=== PATIENT | female | born 1970 | race Caucasian/White ===

== ENCOUNTER → 2021-03-02 04:21 | Outpatient (CLI) | payer BC, SELFPAY ==
[2021-03-02 19:26] LABS: SARS-CoV-2 RNA PCR Negative
== END ==
PROVIDERS: PCP Physician Assistant; Visit Provider Physician Assistant
DX: Z20.822 Contact with and (suspected) exposure to COVID-19 (principal)
CPT/HCPCS: C9803; U0003; U0005

== ENCOUNTER → 2021-11-07 13:05 | Outpatient (CLI) | payer BC, SELFPAY ==
--- NOTE | ~2021-11-07 | XR_ITS ---
XR knee RT min 4V 11/07/2021 13:39 Indication: Right knee pain Procedure: 4 views right knee Comparison: No prior studies Findings: Mild osteoarthritis of the patellofemoral compartment. No fracture, subluxation or dislocat ion. No significant joint effusion. Impression: 1: Mild patellofemoral compartment osteoarthritis of the right knee. Reviewed, dictated and finalized at location B. Impression: 1: Mild patellofemoral compartment osteoarthritis of the right knee.
== END ==
PROVIDERS: PCP Physician Assistant; Visit Provider Physician Assistant
DX: M25.561 Pain in right knee (principal); M17.11 Unilateral primary osteoarthritis, right knee
CPT/HCPCS: 73564

== ENCOUNTER 2021-12-17 08:29 | Emergency (ER) | payer BC, SELFPAY ==
[2021-12-17 08:44] VITALS: BP 132/86; PULSE 80; RESP 18; TEMP 36.4; O2SAT 100
--- NOTE | 2021-12-17 08:53 | ED.EAR ---
HPI - Ear Problem General Chief complaint: Ear Stated complaint: Right Ear Irritation Time Seen by Provider: 12/17/21 09:00 Source: patient and RN notes reviewed Mode of arrival: ambulatory Limitations: no limitations History of Present Illness HPI Narrative: 51-year-old female presents concern for right ear pain and irritation for several days. She reports history of itchy ears, she was scratching the ear and she noticed some fluid came out and then it became painful. She denies any fever. Reports mild stuffy and runny nose. She denies hearing changes. MD Complaint: ear pain Related Data Home Medications Medication Instructions Recorded Confirmed dapagliflozin 5 mg tablet (Farxiga) 5 mg PO DAILY 12/17/21 12/17/21 metformin 1,000 mg tablet 1,000 mg PO BID 12/17/21 12/17/21 telmisartan 80 1 tablet PO DAILY 12/17/21 12/17/21 mg-hydrochlorothiazide 12.5 mg tablet Allergies Allergy/AdvReac Type Severity Reaction Status Date / Time lisinopril AdvReac Intermediate Cough Verified 12/17/21 08:58 Review of Systems Review of Systems: CONSTITUTIONAL: Denies malaise, chills, sweats, or fever. EYES: Denies visual changes, redness, or discharge. ENT: Reports mild rhinorrhea, congestion. Denies sinus pain, and sore throat. Reports right ear pain and irritation CARDIOVASCULAR: Denies chest pain, palpitations, or edema. RESPIRATORY: Denies cough. Denies dyspnea. GASTROINTESTINAL: Denies abdominal pain, nausea, vomiting, diarrhea SKIN: Denies rash or itching. MUSCULOSKELETAL: Denies myalgia. NEUROLOGIC: Denies headache. All systems reviewed & are unremarkable except as noted in HPI and below PMFSH Family History Family History (Updated 10/20/15 @ 23:19 by DOCTOR UNKNOWN) Mother Hypertension Family history of diabetes mellitus in first degree relative Father Family history of chronic obstructive pulmonary disease Family history of diabetes mellitus in first degree relative Family history of emphysema Other Diabetes mellitus Social History Social History Smoking status: Never smoker Alcohol intake: current Comments At time of signature, agree with nursing past medical, surgical, social and family history. There is no relevant family history pertinent to the presenting complaint Exam Narrative: GENERAL: Well-appearing, well-nourished, and in no acute distress. HEAD: Normocephalic EYES: PERRLA, conjunctivae clear ENT: Nares clear, turbinates edematous, clear discharge. Mucous membranes moist. TM pearly chambers with dull light reflex bilaterally; right tragal tenderness with EAC erythema, edema, drainage. Oropharynx not erythematous without lesions. Tonsils not enlarged and without exudate, no drooling, no hoarseness, no trismus, uvula midline. NECK: Supple. No lymphadenopathy CHEST: Clear to auscultation, breath sounds equal. No wheezing, rhonchi, rales, or stridor. No respiratory distress, speaks in full sentences. HEART: Regular rate and rhythm. No murmur heard. SKIN: Warm, dry, no rash. NEURO: Alert and oriented x3. PSYCH: Normal mood and affect Course Course Emergency Course: Patient is aware of diagnosis, understands and agrees to treatment plan. Anticipatory guidance given. Patient agrees to follow-up as directed and is aware of reasons to seek care at the emergency department. Portions of this record may have been created with voice recognition software Level of Care: Express Care Visit Vital Signs Vital signs: Vital Signs Temperature 97.6 F 12/17/21 08:44 Pulse Rate 80 12/17/21 08:44 Respiratory Rate 18 12/17/21 08:44 Blood Pressure 132/86 12/17/21 08:44 Pulse Oximetry 100 12/17/21 08:44 Oxygen Delivery Room Air 12/17/21 08:44 Temperature 97.6 F 12/17/21 08:44 Pulse Rate 80 12/17/21 08:44 Respiratory Rate 18 12/17/21 08:44 Blood Pressure 132/86 12/17/21 08:44 Pulse Oximetry 100 12/17/21 08:44 Oxygen Delivery Room Air 12/17/21 08:44 Re
== END 2021-12-17 09:11 | disposition home or self-care (01) ==
PROVIDERS: Emergency Provider Nurse Practitioner; PCP Physician Assistant
DX: H60.91 Unspecified otitis externa, right ear (principal)
CPT/HCPCS: 99213; G0463

== ENCOUNTER 2022-03-20 00:40 | Day surgery (SDC) | payer BC, SELFPAY ==
[2022-03-06 14:22] VITALS: BMI 44.5
--- NOTE | 2022-03-15 13:06 | PM.HPGS ---
History of Present Illness History of Present Illness Consent: Risks, benefits, and alternatives have been discussed and questions answered. Patient agrees to proceed with procedure. Chief complaint: neoplasm screening Narrative: Kathy Rivers is a 52 year old female Referred for colon cancer screening. Review of Systems Review of Systems: All systems reviewed & are unremarkable except as noted in HPI and below PMFSH Family History Family History Mother Hypertension Family history of diabetes mellitus in first degree relative Father Family history of chronic obstructive pulmonary disease Family history of diabetes mellitus in first degree relative Family history of emphysema Other Diabetes mellitus Social History Social History Smoking status: Never smoker Alcohol intake: never Substance use: never Substance use type: does not use Living arrangements: with family Spiritual care concerns: No Meds Home Medications and Allergies Home Medications Medication Instructions Recorded Confirmed Type dapagliflozin 5 mg tablet (Farxiga) 5 mg PO DAILY 12/17/21 03/20/22 History metformin 1,000 mg tablet 1,000 mg PO BID 12/17/21 03/20/22 History telmisartan 80 1 tablet PO DAILY 12/17/21 03/20/22 History mg-hydrochlorothiazide 12.5 mg tablet semaglutide 0.25 mg or 0.5 mg (2 0.5 mg subcut WEEKLY 03/06/22 03/20/22 History mg/1.5 mL) subcutaneous pen injector (Ozempic) Allergies Allergy/AdvReac Type Severity Reaction Status Date / Time lisinopril AdvReac Intermediate Cough Verified 03/20/22 08:44 Exam Resp: Auscultation: clear to auscultation bilaterally Cardio: Rate: regular rate Rhythm: regular rhythm GI: GI Palp: Yes Soft to palpation and No Tenderness to palpation present (GI) Assessment and Plan Assessment and plan (1) Colon cancer screening: Code(s): Z12.11 - Encounter for screening for malignant neoplasm of colon Status: Acute Assessment and Plan: Colonoscopy with possible biopsy or polypectomy or cautery or injection of substances.
[2022-03-20 08:44] LABS: Glucose Point of Care 99 mg/dl (65-105)
[2022-03-20 08:45] VITALS: BP 130/93; PULSE 91; RESP 20; TEMP 36.1; O2SAT 98
--- NOTE | 2022-03-20 08:49 | WPDANESEPPF ---
Anes - Initial Pre Proc Eval Procedure: Operation Date: 03/20/22 09:45 Proposed Procedures p Screening Colonoscopy - Zenon Christensen MD Date/Time: 03/20/22 08:49 Surgeon: Zenon Christensen MD Pre Op Diagnosis: neoplasm screening Patient Data Age: 52 Gender: F Height: 1.6 m Weight: 111.9 kg Last Vital Signs Temp 97.0 F L 03/20/22 08:45 Pulse 91 03/20/22 08:45 Resp 20 03/20/22 08:45 BP 130/93 H 03/20/22 08:45 Pulse Ox 98 03/20/22 08:45 O2 Del Method Room Air 03/20/22 08:45 Allergies Allergy/AdvReac Type Severity Reaction Status Date / Time lisinopril AdvReac Intermediate Cough Verified 03/20/22 08:44 Home Medications Medication Instructions Recorded Confirmed Type dapagliflozin 5 mg tablet (Farxiga) 5 mg PO DAILY 12/17/21 03/20/22 History metformin 1,000 mg tablet 1,000 mg PO BID 12/17/21 03/20/22 History telmisartan 80 1 tablet PO DAILY 12/17/21 03/20/22 History mg-hydrochlorothiazide 12.5 mg tablet semaglutide 0.25 mg or 0.5 mg (2 0.5 mg subcut WEEKLY 03/06/22 03/20/22 History mg/1.5 mL) subcutaneous pen injector (Ozempic) Laboratory Tests 03/20/22 08:42 POC Capillary Glucose 99 mg/dl mg/dl (65-105) Patient hx anesthesia problems: none Family hx anesthesia problems: none Results Review: All pre-operative results and documents have been reviewed as part of the pre-operative evaluation. [facility] Family History Family History (Updated 10/20/15 @ 23:19 by DOCTOR UNKNOWN) Mother Hypertension Family history of diabetes mellitus in first degree relative Father Family history of chronic obstructive pulmonary disease Family history of diabetes mellitus in first degree relative Family history of emphysema Other Diabetes mellitus Social History Social History Smoking status: Never smoker Alcohol intake: never Substance use: never Substance use type: does not use Living arrangements: with family Spiritual care concerns: No Anes - Eval Final PreProcedure Day of Procedure 03/20/22 08:49 Patient weight: morbidly obese Heart: regular rate and rhythm Lungs: clear to auscultation Airway: Mallampati scale class II Neurological: alert and oriented Last oral intake: >/= 8 hours ASA classification: III Emergent: no Anesthetic plan: proceed Anesthesia type and monitoring: general GIVS and standard monitoring Results Review: All pre-operative results and documents have been reviewed as part of the pre-operative evaluation. Informed Consent: The patient's anesthetic plan and its attendant risks and benefits were discussed with the patient/family/POA. Questions were solicited and answers provided to the satisfaction of the patient/family/POA.
[2022-03-20] MEDS: LACTATED RINGERS 1,000 ML 150 ML IV CONT (09:09)
[2022-03-20 09:31] VITALS: BP 99/57; PULSE 74; RESP 20; O2SAT 97
[2022-03-20 09:41] VITALS: BP 100/56; PULSE 76; RESP 20; O2SAT 98
[2022-03-20 09:49] VITALS: BP 103/63; PULSE 73; RESP 20; O2SAT 97
== END 2022-03-20 10:05 | disposition home or self-care (01) ==
PROVIDERS: PCP Physician Assistant; Visit Provider Internal Medicine Gastroenterology
PROC: 0DJD8ZZ Inspection of Lower Intestinal Tract, Via Natural or Artificial Opening Endoscopic (ICD-10-PCS; CPT 45378; principal; 2022-03-20 09:45)
DX: Z12.11 Encounter for screening for malignant neoplasm of colon (principal); K57.30 Diverticulosis of large intestine without perforation or abscess without bleeding; K63.89 Other specified diseases of intestine; Z79.84 Long term (current) use of oral hypoglycemic drugs; Z79.899 Other long term (current) drug therapy; E66.01 Morbid (severe) obesity due to excess calories; Z68.41 Body mass index [BMI] 40.0-44.9, adult
CPT/HCPCS: 45380; 82948; 88305; J2704; J7120

== ENCOUNTER 2022-06-11 12:38 | Outpatient (CLI) | payer BC, SELFPAY ==
--- NOTE | ~2022-06-11 | CT_ITS ---
EXAMINATION: CT sinus wo con DATE: 06/11/2022 12:52 INDICATION: Nasal sinus obstruction TECHNIQUE: Computed tomography (CT) of the paranasal sinuses was performed without contrast. Iterativ e reconstruction technique was employed. Exam dose: 280.01 mGy-cm total exam DLP. COMPARISON: None FINDINGS: There is prominent soft tissue mass density engulfing the left middle nasal turbinate and p artially engulfing the left inferior nasal turbinate, including the left middle meatus. There is mild mucoperiosteal thickening of the maxillary sinuses, left greater than right. There is m inimal soft tissue thickening of the left maxillary ostium and infundibulum The right maxillary sinus and infundibula are patent. Normal development and aeration of the ethmoid air cells, frontal and sphenoid sinuses. The mastoid air cells are normally developed and aerated. IMPRESSION: Prominent confluent soft tissue thickening engulfing the left middle nasal turbinate and partially engulfing the left inferior nasal turbinate, opacifying the left middle meatus Mild mucoperiosteal thickening of the maxillary sinuses, left greater than right Reviewed, dictated and finalized at Location A. Reviewed, dictated and finalized at location B. IMPRESSION: Prominent confluent soft tissue thickening engulfing the left midd le nasal turbinate and partially engulfing the left inferior nasal turbinate, o pacifying the left middle meatus Mild mucoperiosteal thickening of the maxillary sinuses, left greater than righ t
== END 2022-06-11 12:39 ==
LOC: MICIMG 12:39
PROVIDERS: PCP Physician Assistant; Visit Provider Physician Assistant
DX: J34.89 Other specified disorders of nose and nasal sinuses (principal)
CPT/HCPCS: 70486

== ENCOUNTER 2022-08-07 08:43 | Emergency (ER) | payer BC, SELFPAY ==
--- NOTE | 2022-08-07 08:45 | ED.EAR ---
HPI - Ear Problem General Chief complaint: Ear Stated complaint: Ear Irritation Time Seen by Provider: 08/07/22 08:45 Source: patient Mode of arrival: ambulatory Limitations: no limitations History of Present Illness HPI Narrative: Kathy is a 52-year-old female patient presenting to the clinic today with complaints of left ear pain/irritation since last night. She reports that a beetle bug got into her left ear canal last night. She irrigated the bug out of her ear however, she is now having some pain in her left ear today. Denies any otorrhea or blood. Related Data Home Medications Medication Instructions Recorded Confirmed metformin 1,000 mg tablet 1,000 mg PO BID 12/17/21 08/07/22 semaglutide 0.25 mg or 0.5 mg (2 0.5 mg subcut WEEKLY 03/06/22 08/07/22 mg/1.5 mL) subcutaneous pen injector (Ozempic) Allergies Allergy/AdvReac Type Severity Reaction Status Date / Time lisinopril AdvReac Intermediate Cough Verified 08/07/22 08:46 Review of Systems Review of Systems: Pertinent positives per HPI. Patient denies any fever, chills, rash, headache, visual changes, dizziness, cough, runny nose, sore throat, shortness of breath, chest pain, palpitations, nausea, vomiting, diarrhea, constipation, abdominal pain, or any urinary issues. PMFSH Family History Family History Mother Hypertension Family history of diabetes mellitus in first degree relative Father Family history of chronic obstructive pulmonary disease Family history of diabetes mellitus in first degree relative Family history of emphysema Other Diabetes mellitus Social History Social History Smoking status: Never smoker Alcohol intake: never Substance use: never Substance use type: does not use Living arrangements: with family Spiritual care concerns: No Comments At the time of my signature, I reviewed and agree with the nursing past medical, surgical, social, and family history. There is no relevant family history pertinent to the patient complaint. Exam Narrative: General: Well-developed, well nourished, in no apparent distress Head: Normocephalic, atraumatic Eyes: Pupils equally round and reactive to light bilaterally, EOM intact, sclera and conjunctive clear, no discharge, lids normal Ears: Right tMs intact and clear, left TM intact, mildly red, without bulging, left ear canal mildly red, right ear canal clear, no drainage, grossly hearing normal. Nose: Nares patent, no discharge, no inflammation, no sinus tenderness. Mouth: Oropharynx without lesions or masses, good dentition, MMM. Neck: Supple, trachea midline, no enlargement of anterior or posterior cervical nodes, no thyroid masses or goiter palpable. Cardio: Regular rate and rhythm, s1 and s2 normal, no murmur appreciated. Resp: Clear to auscultation bilaterally anteriorly and posteriorly, no rhonchi, rales, wheezing or rubs Course Course Emergency Course: Portions of this record may have been created with voice recognition software. Level of Care: Express Care Visit Vital Signs Vital signs: Vital signs reviewed Medical Decision Making MDM Narrative Medical decision making narrative: At the time of visit patient is resting comfortably on the exam table. Patient does have some excoriation/irritation to the left ear canal and to the anterior TM. Will send in prescription for some Cortisporin ear drops to help with irritation/pain and cover any infection. Supportive measures were discussed with the patient she voiced understanding of the discharge instructions and agrees to treatment plan. Differential Diagnosis Differential Diagnosis: Otitis media, otitis externa, eustachian tube dysfunction, cerumen impaction, upper respiratory infection, Discharge Plan Discharge Clinical Impression: Irritation of external ear canal Qual
[2022-08-07 08:51] VITALS: BP 131/86; PULSE 84; RESP 20; TEMP 36.6; O2SAT 99
== END 2022-08-07 09:05 | disposition home or self-care (01) ==
PROVIDERS: Emergency Provider Nurse Practitioner Family; PCP Physician Assistant
DX: H61.892 Other specified disorders of left external ear (principal); I10 Essential (primary) hypertension; E11.9 Type 2 diabetes mellitus without complications
CPT/HCPCS: 99213; G0463

== ENCOUNTER 2023-01-24 08:04 | Emergency (ER) | payer BC, SELFPAY ==
[2023-01-24 08:15] VITALS: BP 144/80; PULSE 78; RESP 16; TEMP 36.7; O2SAT 99
[2023-01-24 08:19] VITALS: BP 144/80; PULSE 78; RESP 16; TEMP 36.7; O2SAT 99
--- NOTE | 2023-01-24 08:36 | ED.SKABFB ---
HPI - Skin/Abscess/Foreign Bdy General Chief complaint: Skin/Abscess/Foreign Body Stated complaint: itching,rash Time Seen by Provider: 01/24/23 08:27 Source: patient and RN notes reviewed Mode of arrival: ambulatory Limitations: no limitations History of Present Illness HPI narrative: Patient presents today complaining of a severely pruritic rash to her body, primarily to her arms, hands, waist band, neck and chest. Rash was noted this morning when she arrived at work. Patient believes this is likely an allergic reaction to medication she was started on 2 days ago by her primary for cough and congestion symptoms. She has been sick for the last 10-14 days and started on Augmentin and guaifenesin/codeine cough medicine. States she has had Augmentin several times in the past, last was a few months ago. She believe she has had codeine before, but it has been several years. She has not tried any [id number] medication for symptoms prior to arrival. Denies shortness of breath or difficulty swallowing. She is driving herself home today, and plans to return to work Related Data Home Medications Medication Instructions Recorded Confirmed metformin 1,000 mg tablet 1,000 mg PO BID 12/17/21 01/24/23 semaglutide 0.25 mg or 0.5 mg (2 0.5 mg subcut WEEKLY 03/06/22 01/24/23 mg/1.5 mL) subcutaneous pen injector (Ozempic) alprazolam 0.5 mg tablet 0.5 mg PO DAILY 01/24/23 01/24/23 amoxicillin 875 mg-potassium 1 tablet PO DAILY 01/24/23 01/24/23 clavulanate 125 mg tablet codeine 10 mg-guaifenesin 100 mg/5 5 ml PO DAILY 01/24/23 01/24/23 mL oral liquid telmisartan 80 1 tablet PO DAILY 01/24/23 01/24/23 mg-hydrochlorothiazide 12.5 mg tablet Allergies Allergy/AdvReac Type Severity Reaction Status Date / Time lisinopril AdvReac Intermediate Cough Verified 01/24/23 08:15 Review of Systems Review of Systems: CONSTITUTIONAL: Denies body aches, fever, chills, or sweats. EYES: Denies visual changes, redness, or discharge. ENT: Denies rhinorrhea, congestion, sore throat, or otalgia. CARDIOVASCULAR: Denies chest pain, palpitations, or edema. RESPIRATORY: Denies cough or dyspnea. GASTROINTESTINAL: Denies abdominal pain, nausea, vomiting, or diarrhea. GENITOURINARY: Denies dysuria or hematuria. SKIN: Pruritic rash MUSCULOSKELETAL: Denies back pain, joint pain, or myalgia. NEUROLOGIC: Denies headache, numbness, tingling, or weakness. PSYCH: Denies depression or anxiety. [facility] Family History Family History Mother Hypertension Family history of diabetes mellitus in first degree relative Father Family history of chronic obstructive pulmonary disease Family history of diabetes mellitus in first degree relative Family history of emphysema Other Diabetes mellitus Social History Social History Smoking status: Never smoker Alcohol intake: never Substance use: never Substance use type: does not use Living arrangements: with family Spiritual care concerns: No Comments At time of signature, I have reviewed and agree with nursing past medical, surgical, social and family history unless otherwise noted. Please see nursing chart for further information. There is no relevant family history pertinent to the presenting complaint Exam Narrative: GENERAL: Well-appearing, well-nourished, and in no acute distress. HEAD: Normocephalic, atraumatic. EYES: EOMI. No redness or drainage. Conjunctivae normal. ENT: Mucous membranes pink and moist. Nares clear. No rhinorrhea. Throat normal. Uvula midline. No facial swelling. Tongue and lips are normal. NECK: Normal AROM. Supple. No lymphadenopathy. CHEST: No respiratory distress. Clear to auscultation. HEART: Regular rate and rhythm. No murmur appreciated. EXTREMITIES: Urticarial rash to the lower abdomen, scattered to the back, chest
== END 2023-01-24 08:50 | disposition home or self-care (01) ==
PROVIDERS: Emergency Provider Nurse Practitioner; PCP Physician Assistant
DX: L50.0 Allergic urticaria (principal); I10 Essential (primary) hypertension; E11.9 Type 2 diabetes mellitus without complications
CPT/HCPCS: 99213; G0463

== ENCOUNTER 2024-08-13 09:21 | Emergency (ER) | payer BC, SELFPAY ==
[2024-08-13 09:41] VITALS: BP 169/108; PULSE 80; RESP 18; TEMP 36.2; O2SAT 100
--- NOTE | 2024-08-13 09:53 | ED.EAR ---
HPI - Ear Problem General Chief complaint: Upper Respiratory Infection Stated complaint: Dizzness/Sinus/Ears Irritation Time Seen by Provider: 08/13/24 09:49 Source: patient and RN notes reviewed Mode of arrival: ambulatory Limitations: no limitations History of Present Illness HPI Narrative: 54-year-old female presents with concern for several week history of sinus pressure, pain, congestion, ear pressure and pain, dizziness, dry cough, dizziness when she rolls over in bed or turns her head quickly. She has been taking multiple [id number] medications without relief. She has history of sinus infections MD Complaint: ear pain Related Data Home Medications ?Medication ?Instructions ?Recorded ?Confirmed ?Last Taken ?Type metformin 1,000 mg tablet 1,000 mg PO BID 12/17/21 01/24/23 03/19/22 History semaglutide 0.25 mg or 0.5 mg (2 0.5 mg subcut WEEKLY 03/06/22 01/24/23 03/19/22 History mg/1.5 mL) subcutaneous pen injector (Ozempic) alprazolam 0.5 mg tablet 0.5 mg PO DAILY 01/24/23 01/24/23 Unknown History telmisartan 80 1 tablet PO DAILY 01/24/23 01/24/23 Unknown History mg-hydrochlorothiazide 12.5 mg tablet hydrochlorothiazide 12.5 mg tablet mg 08/13/24 Unknown History telmisartan 40 mg tablet mg 08/13/24 Unknown History Allergies Allergy/AdvReac Type Severity Reaction Status Date / Time lisinopril AdvReac Intermediate Cough Verified 08/13/24 09:39 Review of Systems Review of Systems: CONSTITUTIONAL: Reports malaise. Denies chills, sweats, or fever. EYES: Denies visual changes, redness, or discharge. ENT: Reports rhinorrhea, congestion, sinus pain, otalgia and sore throat. CARDIOVASCULAR: Denies chest pain, palpitations, or edema. RESPIRATORY: Reports cough. Denies dyspnea. GASTROINTESTINAL: Denies abdominal pain, nausea, vomiting, diarrhea SKIN: Denies rash or itching. MUSCULOSKELETAL: Denies myalgia. NEUROLOGIC: Reports headache. All systems reviewed & are unremarkable except as noted in HPI and below PMFSH Family History Family History Mother Hypertension Family history of diabetes mellitus in first degree relative Father Family history of chronic obstructive pulmonary disease Family history of diabetes mellitus in first degree relative Family history of emphysema Other Diabetes mellitus Social History Social History (Reviewed 01/24/23 @ 08:38 by Kelley Newton, [facility], ) Smoking status: Never smoker Alcohol intake: never Substance use: never Substance use type: does not use Living arrangements: with family Spiritual care concerns: No Comments At time of signature, agree with nursing past medical, surgical, social and family history. There is no relevant family history pertinent to the presenting complaint Exam Narrative: GENERAL: Well-appearing, well-nourished, and in no acute distress. HEAD: Normocephalic EYES: PERRLA, conjunctivae clear ENT: Nares clear, turbinates edematous and erythematous. Mucous membranes moist. TM pearly chambers with dull light reflex bilaterally; no tragal tenderness. Oropharynx not erythematous without lesions. Tonsils not enlarged and without exudate, no drooling, no hoarseness, no trismus, uvula midline. NECK: Supple. No lymphadenopathy CHEST: Clear to auscultation, breath sounds equal. No wheezing, rhonchi, rales, or stridor. No respiratory distress, speaks in full sentences. HEART: Regular rate and rhythm. No murmur heard. SKIN: Warm, dry, no rash. NEURO: Alert and oriented x3. PSYCH: Normal mood and affect Course Course Emergency Course: Patient is aware of diagnosis, understands and agrees to treatment plan. Anticipatory guidance given. Patient agrees to follow-up as directed and is aware of reasons to seek care at the emergency department. Portions of this record may have been created with voice recognition software Level of Care: Express Care Visit Vital Signs Vital signs: Vital Signs Temperature 97.2 F L 08/13/24 09:41 Pulse Rate 80 08/13/24 09:41 Respiratory Rate 18 08/13/24 09:41 Blood Pressure 169/108 H 08/13/24 09:41 Pulse Oximetry 100 08/13/24 09:41 Oxygen Delivery Room Air 08/13/24 09:41 Temperature 97.2 F L 08/13/24 09:41 Pulse Rate 80 08/13/24 09:41 Respiratory Rate 18 08/13/24 09:41 Blood Pressure 169/108 H 08/13/24 09:41 Pulse Oximetry 100 08/13/24 09:41 Oxygen Delivery Room Air 08/13/24 09:41 Reviewed. Medical Decision Making Vital Signs Vital Signs: Vital Signs Temperature 97.2 F L 08/13/24 09:41 Pulse Rate 80 08/13/24 09:41 Respiratory Rate 18 08/13/24 09:41 Blood Pressure 169/108 H 08/13/24 09:41 Pulse Oximetry 100 08/13/24 09:41 Oxygen Delivery Room Air 08/13/24 09:41 Temperature 97.2 F L 08/13/24 09:41 Pulse Rate 80 08/13/24 09:41 Respiratory Rate 18 08/13/24 09:41 Blood Pressure 169/108 H 08/13/24 09:41 Pulse Oximetry 100 08/13/24 09:41 Oxygen Delivery Room Air 08/13/24 09:41 Critical Care Time Critical Care Time Critical Care Time: No Discharge Plan Discharge Clinical Impression: Sinusitis Patient Disposition: Home Condition: Stable Instructions: Antibiotic Form, Sinusitis (ED) Additional Instructions: Take medication as prescribed Nonprescription pain medications, such as acetaminophen (eg, Tylenol) or ibuprofen (eg, Motrin, Advil), are recommended for pain. Flushing the nose and sinuses with a saline solution several times per day has been proven to decrease pain associated with congestion and shorten the duration of symptoms. Nasal steroids (such as Flonase, 2 sprays in each nostril daily) can help to reduce swelling inside the nose, usually within two to three days. These drugs have few side effects and relieve symptoms in most people. Oral decongestants (pseudoephedrine and phenylephrine) may be helpful if you have associated symptoms of ear pain or fullness. Nasal decongestant sprays, including oxymetazoline (Afrin) and phenylephrine (Morteza-Synephrine), can be used to temporarily treat congestion. However, these sprays should not be used for more than two to three days due to the risk of rebound congestion (when the nose becomes congested constantly unless the medication is used repeatedly), possible addiction, and long-term consequences of frequent use, including persistent nasal dryness and crusting, which is very difficult to treat once it has developed. Medications to thin secretions (such as guaifenesin) may help to clear mucus. Please follow-up with your primary care doctor in the next 1-2 days. If you cannot follow-up with your primary care doctor please go to the ED for any urgent issues. If you have any worsening of symptoms or any other concerns please go to the ED immediately. Patient Language: Irish Prescriptions: New doxycycline monohydrate 100 mg tablet 100 mg PO BID 7 Days Qty: 14 0RF methylprednisolone [Medrol (Live)] 4 mg tablets,dose pack See Rx Instructions .ROUTE .COMPLEX Qty: 21 0RF Rx Instructions: orally per package directions No Action metformin 1,000 mg tablet 1,000 mg PO BID alprazolam 0.5 mg tablet 0.5 mg PO DAILY telmisartan-hydrochlorothiazid 80-12.5 mg tablet 1 tablet PO DAILY doxycycline hyclate 100 mg tablet 100 mg PO BID 5 Days Qty: 10 0RF telmisartan 40 mg tablet hydrochlorothiazide 12.5 mg tablet Ozempic 0.25 mg or 0.5 mg(2 mg/1.5 mL) pen injector 0.5 mg SUBCUT WEEKLY Follow-up/Referrals: Maria Alejandra,JOSEMANUEL Gomez [Primary Care Provider] - Time of Disposition: 09:55
== END 2024-08-13 09:59 | disposition home or self-care (01) ==
PROVIDERS: Emergency Provider Nurse Practitioner; PCP Physician Assistant
DX: J32.9 Chronic sinusitis, unspecified (principal); I10 Essential (primary) hypertension; E11.9 Type 2 diabetes mellitus without complications; Z79.84 Long term (current) use of oral hypoglycemic drugs
CPT/HCPCS: 99213; G0463